=== PATIENT | female | born 1945 | race Caucasian/White ===

== ENCOUNTER 2024-05-22 00:53 | Emergency (ER) | payer OTHER ==
[~2024-05-22] VITALS: Ht 162.6 cm; Wt 77.3 kg
[2024-05-22 01:31] VITALS: TEMP 98.3; O2SAT 98
[2024-05-22] MEDS: ONDANSETRON ODT 4 MG TAB PO ONE (04:30)
[2024-05-22] MEDS ORDERED: ACE3T PO (04:46)
[2024-05-22] MEDS: MORPHINE SULFATE INJ 2 MG/ml SYRG IV ONE (05:14)
[2024-05-22 05:30] VITALS: BP 154/71; PULSE 77; RESP 18
== END 2024-05-22 05:40 | disposition home or self-care (01) ==
LOC: ER 00:53 → EDBD 00:53 → ER 05:40
DX: S20.212A Contusion of left front wall of thorax, initial encounter (principal); S70.02XA Contusion of left hip, initial encounter; E78.5 Hyperlipidemia, unspecified; I10 Essential (primary) hypertension; Z90.49 Acquired absence of other specified parts of digestive tract; Z98.890 Other specified postprocedural states; X58.XXXA Exposure to other specified factors, initial encounter; Y93.89 Activity, other specified; Y92.89 Other specified places as the place of occurrence of the external cause; Y99.8 Other external cause status
CPT/HCPCS: 71250; 74176; 96374; 99285; J2270; Q0162